=== PATIENT | female | born 1970 | race Caucasian/White ===

== ENCOUNTER 2025-04-20 07:29 | Observation (INO) | payer BC ==
[~2025-04-20] VITALS: Ht 162.6 cm; Wt 87.1 kg
[2025-04-20] VITALS (9 sets, daily range): BP systolic 113–162; BP diastolic 73–103
[2025-04-20] MEDS ORDERED: Ondansetron HCl 2 MG / ML 2ML Vial IV ONE (08:00)
[2025-04-20] MEDS ORDERED: Ketorolac Tromethamine 30mg Vial IV ONE (08:00)
[2025-04-20 08:07] LABS: BASOPHILS ABSOLUTE AUTO 0.05 K/mm3 (0.00-0.23); BASOPHILS PERCENT AUTO 0 % (0-2); EOSINOPHILS ABSOLUTE AUTO 0.09 K/mm3 (0.00-0.68); EOSINOPHILS PERCENT AUTO 1 % (0-6); Hematocrit 45.2 % (33.0-51.0); Hemoglobin 15.3 g/dL (11.5-16.0); IMMATURE GRAN ABSOLUTE AUTO 0.05 K/mm3 (0.00-0.10); IMMATURE GRAN PERCENT AUTO 0 % (0-1); LYMPHOCYTES ABSOLUTE AUTO 1.01 K/mm3 (0.84-5.20); LYMPHOCYTES PERCENT AUTO 8 % (21-46); MONOCYTES ABSOLUTE AUTO 0.41 K/mm3 (0.16-1.47); MONOCYTES PERCENT AUTO 3 % (4-13); Mean Corpuscular HGB Conc 33.8 g/dL (31.5-36.5); Mean Corpuscular Volume 84 fL (80-100); NEUTROPHILS ABSOLUTE AUTO 11.65 K/mm3 (1.96-9.15); NEUTROPHILS PERCENT AUTO 88 % (41-73); NRBC ABSOLUTE 0.00 K/mm3 (0.00-0.02); NRBC Auto 0.0 /100 WBC (0.0-0.2); Platelet Count 321 K/mm3 (150-400); RDW Coefficient Variation 12.7 % (11.7-14.2); RDW Standard Deviation 38.5 fL (35.1-46.3)
[2025-04-20] MEDS ORDERED: AMLODIPINE BESY10 MG PO (08:13)
[2025-04-20] MEDS ORDERED: ALBU8HFA2 (08:14)
[2025-04-20] MEDS ORDERED: LISI20 PO (08:14)
[2025-04-20] MEDS ORDERED: ESCI20 PO (08:14)
[2025-04-20 08:32] LABS: Alanine Aminotransfer (ALT/SGP 25.0 U/L (12-78); Albumin, Blood 4.1 g/dL (3.4-5.0); Albumin/Globulin Ratio 1.1 (0.8-1.8); Anion Gap 11.0 mmol/L (3-11); Aspartate Aminotrans (AST/SGOT 17.0 U/L (12-37); Bilirubin, Total 0.4 mg/dL (0.1-1.0); Blood Urea Nitrogen 16.0 mg/dL (8-24); CO2, Blood 24.0 mmol/L (21-32); Calcium, Blood 9.4 mg/dL (8.5-10.1); Chloride, Blood 106.0 mmol/L (98-108); Creatinine, Blood 0.78 mg/dL (0.40-1.00); Globulin, Blood 3.7 g/dL (2.2-4.0); Glucose, Blood 157.0 mg/dL (70-99); Potassium, Blood 3.5 mmol/L (3.5-5.5); Sodium, Blood 137.0 mmol/L (136-145); Total Protein, Blood 7.8 g/dL (6.4-8.2)
[2025-04-20 08:52] LABS: Source, Urine Clean Catch
[2025-04-20 08:56] LABS: Bilirubin, Urine Neg (Neg); Color, Urine Yellow (P-Yellow); Glucose Qualitative, Urine Neg (Neg); Ketones, Urine 2+ (Neg); Leukocyte Esterase, Urine 3+ (Neg); Protein, Urine 2+ (Neg); Specific Gravity, Urine 1.010 (1.003-1.022); Urobilinogen, Urine NORM (Normal)
[2025-04-20] MEDS ORDERED: NS 1,000 ML IV SCH ×2 (09:25→10:30)
[2025-04-20] MEDS ORDERED: CefTRIAXone Sodium 1,000 MG in NS 100 ML IV ONE (09:25)
[2025-04-20] MEDS ORDERED: Ondansetron HCl 2 MG / ML 2ML Vial IV PRN ×2 (10:30→17:25)
[2025-04-20] MEDS ORDERED: FLU VACC TS2025-26(6MOS UP)/PF 45 MCG/0.5 ML SYRINGE IM SCH (10:30)
[2025-04-20] MEDS ORDERED: Ketorolac Tromethamine 15mg Vial IV PRN (10:35)
[2025-04-20] MEDS ORDERED: Midazolam HCl 1MG / ML 2ML Vial ONE (16:51)
[2025-04-20] MEDS ORDERED: FentaNYL Citrate 50 MCG/ML 2 ML Injection ONE (16:51)
[2025-04-20] MEDS ORDERED: Dexamethasone Sod Phos 10 MG/ML 1ML VIAL ONE (16:56)
[2025-04-20] MEDS ORDERED: Ondansetron HCl 2 MG / ML 2ML Vial ONE (16:56)
[2025-04-20] MEDS ORDERED: Ketorolac Tromethamine 30mg Vial ONE (16:56)
[2025-04-20] MEDS ORDERED: CeFAZolin Sodium 2000 MG /100 ML BAG IV ONE (17:01)
--- NOTE | 2025-04-20 17:04 | NUR ---
ADMISSION AND SHIFT SUMMARY PATIENT ADMITTED TO MEDICAL FLOOR FROM ER. PATIENT ALERT AND INTERACTIVE, PATIENT INDEPENDENT. PATIENT STATES THAT HER PAIN IS AT A 1. HEATING PAD PROVIDED FOR COMFORT. PATIENT STATES THAT SHE HAS A TOLERANCE FOR PAIN AND DOES NOT TAKE MEDICATIONS FOR PAIN NORMALLY. PT HAS HX OF HTN. PATIENT TAKEN TO OR VIA WHEELCHAIR. FRIENDS IN THE ROOM WHEN PATIENT TAKEN TO OR.
[2025-04-20] MEDS ORDERED: CeFAZolin Sodium 1000 mg Vial ONE (17:05)
[2025-04-20] MEDS ORDERED: FentaNYL Citrate 50 MCG/ML 2 ML Injection IV PRN ×2 (17:25)
[2025-04-20] MEDS ORDERED: HYDROmorphone HCl/Pf 1MG SYR IV PRN ×2 (17:25)
--- NOTE | 2025-04-21 02:37 | NUR ---
SHIFT SUMMARY PT ALERT AND ORIENTED. PLEASANT AND COOPERATIVE WITH CARES. ABLE TO MAKE NEEDS KNOW. SLEPT THROUGHOUT THE NIGHT. DENIES PAIN, JUST C/O PRESSURE TO VAGINAL AREA. OFFERED PAIN MEDICATION WHICH PT DECLINED. SHE IS INDEPENDENT IN THE ROOM. L HAND PIV RUNNING NS @ 100 ML/HR. ON ROOM AIR. REG DIET. POSSIBLY DISCHARGING HOME 04/21. VSS. BED IN LOWEST POSITION. CALL LIGHT IN REACH.
[2025-04-21 05:46] VITALS: BP 127/82
[2025-04-21 06:00] LABS: Hematocrit 39.5 % (33.0-51.0); Hemoglobin 13.0 g/dL (11.5-16.0); Mean Corpuscular HGB Conc 32.9 g/dL (31.5-36.5); Mean Corpuscular Volume 87 fL (80-100); NRBC ABSOLUTE 0.00 K/mm3 (0.00-0.02); NRBC Auto 0.0 /100 WBC (0.0-0.2); Platelet Count 275 K/mm3 (150-400); RDW Coefficient Variation 12.7 % (11.7-14.2); RDW Standard Deviation 40.4 fL (35.1-46.3)
[2025-04-21 06:26] LABS: Albumin, Blood 3.3 g/dL (3.4-5.0); Anion Gap 8 mmol/L (3-11); Blood Urea Nitrogen 11 mg/dL (8-24); CO2, Blood 24 mmol/L (21-32); Calcium, Blood 8.6 mg/dL (8.5-10.1); Chloride, Blood 112 mmol/L (98-108); Creatinine, Blood 0.65 mg/dL (0.40-1.00); Glucose, Blood 149 mg/dL (70-99); Magnesium, Blood 2.2 mg/dL (1.6-2.4); Phosphorus, Blood 2.6 mg/dL (2.5-4.9); Potassium, Blood 3.5 mmol/L (3.5-5.5); Sodium, Blood 140 mmol/L (136-145)
[2025-04-21 07:31] VITALS: BP 122/81
[2025-04-21] MEDS ORDERED: CefTRIAXone Sodium 1,000 MG in NS 100 ML IV SCH (09:00)
[2025-04-21] MEDS ORDERED: CEFD300 PO (10:52)
--- NOTE | 2025-04-21 12:11 | NUR ---
DISCHARGE 1200 PT AOX4, COOPERATIVE, ABLE TO MAKE NEEDS KNONW. PT IS IND IN ROOM, ON ROOM AIR, TOLERATING MEDICATIONS. NO C/O PAIN THIS SHIFT. NEW MEDS FAXED TO [facility] PER PT REQUEST. IV DC'D BY THIS RN WITHOUT ISSUE. PT OPTED TO AMBULATE OUT OF UNIT INSTEAD OF ACCEPTING WC TRANSPORT OFFER. ROOM STRIPPED.
== END 2025-04-21 12:00 | disposition home or self-care (01) ==
LOC: ER 07:29 → MEDS 07:30 → ENPENDDIS 04-21 10:20 → MEDS 04-21 12:00
PROVIDERS: Emergency Medicine; Urology; ADMIT Internal Medicine
PROC: 0WHR8YZ Insertion of Other Device into Genitourinary Tract, Via Natural or Artificial Opening Endoscopic (ICD-10-PCS; principal; 2025-04-20 17:00)
DX: N13.6 Pyonephrosis (principal); I10 Essential (primary) hypertension; Z79.899 Other long term (current) drug therapy
CPT/HCPCS: 36415; 74176; 80053; 80069; 81001; 83605; 83735; 85025; 85027; 87040; 87077; 87086; 87186; 96365; 96375; 96376; 99285-25; A9270; C1758; C1769; C2617; G0378; J0690; J0696; J1100; J1885; J2250; J2405; J2704; J3010; J7030; J7120